=== PATIENT | male | born 1955 | race Caucasian/White ===

== ENCOUNTER 2021-01-21 07:41 | Day surgery (SDC) | payer OTHER, MEDICARE, SELFPAY ==
[~2021-01-21] VITALS: Ht 182.9 cm; Wt 89.4 kg
[2021-01-21] MEDS ORDERED: fentaNYL CITRATE/PF 100 MCG/2 ML AMP ONE (08:58)
[2021-01-21] MEDS ORDERED: MIDAZOLAM HCL 5 MG/5 ML VIAL ONE (08:58)
[2021-01-21 11:40] VITALS: BP_SYST 115
== END 2021-01-21 10:15 | disposition home or self-care (01) ==
LOC: SDS 07:41 → SMU 07:42 → SDS 10:15
PROVIDERS: ATTEND Internal Medicine
DX: K62.5 Hemorrhage of anus and rectum (principal); D12.5 Benign neoplasm of sigmoid colon; K57.30 Diverticulosis of large intestine without perforation or abscess without bleeding; K64.8 Other hemorrhoids; M19.90 Unspecified osteoarthritis, unspecified site; Z86.010 Personal history of colon polyps; Z85.828 Personal history of other malignant neoplasm of skin; Z79.899 Other long term (current) drug therapy; Z20.822 Contact with and (suspected) exposure to COVID-19
CPT/HCPCS: 45380; 88305; 96365; 99152; G0378; J2250; J3010; U0003; 45385

== ENCOUNTER 2022-12-08 15:50 | Emergency (ER) | payer OTHER, MEDICARE ==
[2022-12-08 16:52] VITALS: BP_SYST 112
--- NOTE | 2022-12-08 17:00 | NUR ---
PT TRIAGED, PT STABLE. PLACED PT IN ER WAITING AREA. WILL CONTINUE TO MONITOR
--- NOTE | 2022-12-08 17:20 | NUR ---
Note tameka in EDM - 12/08/22 at 1942 by [email or web address] REPORT RECIEVED FROM ELIEL HAMILTON. PT DECLINED TORODOL IM AND ZOFRAN SL. PT RESTING COMFORTABLY IN BED VSS.
--- NOTE | 2022-12-08 18:26 | NUR ---
Placed in room 05 . Placed on conveyor monitor, blood pressure machine and pulse oximeter. To gown for exam. Side rails up. Report given to ALFONSO SOARES AND ALFONSO JULIAN.
--- NOTE | 2022-12-08 18:28 | NUR ---
Urine specimen collected and analyzed in ER. Results given to ER .
--- NOTE | 2022-12-08 18:45 | NUR ---
PHLEBOTOMY AT BEDSIDE
--- NOTE | 2022-12-08 18:45 | NUR ---
ER at bedside examining patient.
[2022-12-08] MEDS ORDERED: ONDANSETRON 4 MG ODT TAB PO ONE (19:00)
[2022-12-08] MEDS ORDERED: KETOROLAC TROMETHAMINE 30 MG VIAL IM ONE (19:00)
[2022-12-08 19:03] LABS: BASOPHILS % (AUTO) 0.4 % (0.0-2.0); EOSINOPHILS # (AUTO) 0.1 K/uL (0.0-0.4); EOSINOPHILS % (AUTO) 1.7 % (0.0-4.0); HEMATOCRIT 46.6 % (36-54); HEMOGLOBIN 15.4 g/dL (14.0-18.0); LYMPHOCYTES # (AUTO) 1.3 K/uL (1.0-5.5); LYMPHOCYTES % (AUTO) 19.5 % (20.5-51.5); MEAN CORPUSCULAR HEMOGLOBIN 33 pg (27-31); MEAN CORPUSCULAR HGB CONC 33 % (32-36); MEAN CORPUSCULAR VOLUME 99 fL (79.0-98.0); MONOCYTES # (AUTO) 0.5 K/uL (0.0-1.0); MONOCYTES % (AUTO) 6.9 % (1.7-9.3); NEUTROPHILS # (AUTO) 4.8 K/uL (1.8-7.7); NEUTROPHILS % (AUTO) 71.5 % (40.0-70.0); PLATELET COUNT (AUTO) 211 K/uL (130-430); RED BLOOD CELL COUNT(AUTO) 4.71 MIL/uL (4.2-6.2); RED CELL DISTRIBUTION WIDTH 14.4 % (9.0-15.0); WHITE BLOOD COUNT (AUTO) 6.7 K/uL (4.8-10.8)
[2022-12-08 19:05] LABS: BILIRUBIN,URINE NEGATIVE (NEGATIVE); BLOOD, URINE 1+ (NEGATIVE); CLARITY/URINE CLEAR (CLEAR); COLOR,URINE YELLOW (YELLOW); GLUCOSE,URINE NEGATIVE (NEGATIVE); KETONES,URINE NEGATIVE (NEGATIVE); LEUKOCYTE ESTERASE ,URINE NEGATIVE (NEGATIVE); NITRITE, URINE NEGATIVE (NEGATIVE); PROTEIN URINE TRACE (NEGATIVE); UROBILINOGEN,URINE 0.2 (0.2-1.0)
[2022-12-08 19:16] LABS: CALCIUM 8.9 mg/dL (8.4-11.0); CREATININE 1.15 mg/dL (0.55-1.30)
--- NOTE | 2022-12-08 19:20 | NUR ---
REPORT RECIEVED FROM ELIEL HAMILTON. PT DECLINED TORODOL IM AND ZOFRAN SL. PT RESTING COMFORTABLY IN BED VSS.
[2022-12-08 19:21] LABS: ALBUMIN 3.9 g/dL (3.4-4.8); TOTAL BILIRUBIN 0.4 mg/dL (0.0-1.0)
[2022-12-08 19:21] LABS: BACTERIA,URINE FEW /HPF (None Seen); CALCIUM OXALATE CRYSTALS,UR 0-10 /HPF (None Seen); MUCUS,URINE 2+ /LPF (None Seen); WBC,URINE 0-3 /HPF (0-3)
[2022-12-08] MEDS ORDERED: ONDA-8 TL (19:59)
[2022-12-08] MEDS ORDERED: PHEN-726 PO (19:59)
[2022-12-08 20:25] VITALS: BP_SYST 112
--- NOTE | 2022-12-08 20:26 | NUR ---
Patient given written and verbal discharge instructions and verbalizes understanding. ER MD discussed with patient the results and treatment provided. Patient in stable condition. ID arm band removed. Rx of ZOFRAN AND PYRIDIUM given. Patient educated on KIDNEY STONES AND DIET and to follow up with PMD. Pain Scale . Opportunity for questions provided and answered. Medication side effect fact sheet provided.
== END 2022-12-08 20:25 | disposition home or self-care (01) ==
LOC: SED 15:50
DX: R33.9 Retention of urine, unspecified (principal); R10.30 Lower abdominal pain, unspecified; M54.50 Low back pain, unspecified; Z87.442 Personal history of urinary calculi; Z79.899 Other long term (current) drug therapy
CPT/HCPCS: 36415; 76376; 80053; 81000; 83690; 85025; 99284; Q0162